=== PATIENT | male | born 1965 | race Caucasian/White ===

== ENCOUNTER 2023-11-01 12:11 | Outpatient (CLI) | payer MEDICAID, SELFPAY | END 2023-11-01 12:12 | disposition home or self-care (01) | PROVIDERS: PCP Family Medicine; Visit Provider Family Medicine | DX: I83.018 Varicose veins of right lower extremity with ulcer other part of lower leg (principal); L97.812 Non-pressure chronic ulcer of other part of right lower leg with fat layer exposed; I83.028 Varicose veins of left lower extremity with ulcer other part of lower leg; L97.822 Non-pressure chronic ulcer of other part of left lower leg with fat layer exposed; E11.40 Type 2 diabetes mellitus with diabetic neuropathy, unspecified; I89.0 Lymphedema, not elsewhere classified; Z89.511 Acquired absence of right leg below knee; I25.10 Atherosclerotic heart disease of native coronary artery without angina pectoris; E66.01 Morbid (severe) obesity due to excess calories; Z68.43 Body mass index [BMI] 50.0-59.9, adult; F43.24 Adjustment disorder with disturbance of conduct; Z79.4 Long term (current) use of insulin | CPT/HCPCS: 11042; 11045; G0463 ==

== ENCOUNTER 2023-11-08 07:51 | Outpatient (CLI) | payer MEDICAID, SELFPAY | END 2023-11-08 07:52 | disposition home or self-care (01) | LOC: WOUND 07:51 | PROVIDERS: PCP Family Medicine; Visit Provider Nurse Practitioner Family | DX: I89.0 Lymphedema, not elsewhere classified (principal); L97.818 Non-pressure chronic ulcer of other part of right lower leg with other specified severity; E11.40 Type 2 diabetes mellitus with diabetic neuropathy, unspecified; Z89.511 Acquired absence of right leg below knee; Z79.4 Long term (current) use of insulin | CPT/HCPCS: 97597; 97598; G0463 ==

== ENCOUNTER 2023-11-22 10:11 | Outpatient (CLI) | payer MEDICARE, SELFPAY | END 2023-11-22 10:12 | disposition home or self-care (01) | LOC: WOUND 10:11 | PROVIDERS: PCP Family Medicine; Visit Provider Nurse Practitioner Family | DX: I83.012 Varicose veins of right lower extremity with ulcer of calf (principal); I89.0 Lymphedema, not elsewhere classified; E11.40 Type 2 diabetes mellitus with diabetic neuropathy, unspecified; I73.9 Peripheral vascular disease, unspecified; L97.218 Non-pressure chronic ulcer of right calf with other specified severity; Z89.511 Acquired absence of right leg below knee; Z79.4 Long term (current) use of insulin | CPT/HCPCS: 87070; 87186; 97597; 97598 ==

== ENCOUNTER 2023-12-06 12:49 | Outpatient (CLI) | payer MEDICARE, SELFPAY | END 2023-12-06 12:50 | disposition home or self-care (01) | LOC: WOUND 12:49 | PROVIDERS: PCP Family Medicine; Visit Provider Nurse Practitioner Family | DX: I89.0 Lymphedema, not elsewhere classified (principal); L97.212 Non-pressure chronic ulcer of right calf with fat layer exposed; L89.151 Pressure ulcer of sacral region, stage 1; E11.40 Type 2 diabetes mellitus with diabetic neuropathy, unspecified; Z79.4 Long term (current) use of insulin; Z89.511 Acquired absence of right leg below knee | CPT/HCPCS: 97602; G0463 ==

== ENCOUNTER 2023-12-25 14:27 | Outpatient (CLI) | payer MEDICARE, SELFPAY | END 2023-12-25 14:28 | disposition home or self-care (01) | LOC: WOUND 14:27 | PROVIDERS: PCP Family Medicine; Visit Provider Nurse Practitioner Family | DX: I83.012 Varicose veins of right lower extremity with ulcer of calf (principal); L97.212 Non-pressure chronic ulcer of right calf with fat layer exposed; L89.151 Pressure ulcer of sacral region, stage 1; E11.40 Type 2 diabetes mellitus with diabetic neuropathy, unspecified; I89.0 Lymphedema, not elsewhere classified; Z89.511 Acquired absence of right leg below knee; Z79.4 Long term (current) use of insulin | CPT/HCPCS: G0463 ==

== ENCOUNTER 2024-01-17 09:51 | Outpatient (CLI) | payer MEDICARE, SELFPAY | END 2024-01-17 09:52 | disposition home or self-care (01) | LOC: WOUND 09:51 | PROVIDERS: PCP Family Medicine; Visit Provider Nurse Practitioner Family | DX: L89.151 Pressure ulcer of sacral region, stage 1 (principal); I89.0 Lymphedema, not elsewhere classified; E11.40 Type 2 diabetes mellitus with diabetic neuropathy, unspecified; I83.022 Varicose veins of left lower extremity with ulcer of calf; L97.228 Non-pressure chronic ulcer of left calf with other specified severity; I83.012 Varicose veins of right lower extremity with ulcer of calf; L97.212 Non-pressure chronic ulcer of right calf with fat layer exposed; Z89.511 Acquired absence of right leg below knee; Z79.4 Long term (current) use of insulin; Z79.84 Long term (current) use of oral hypoglycemic drugs | CPT/HCPCS: 97602; G0463 ==

== ENCOUNTER 2024-01-31 10:22 | Outpatient (CLI) | payer MEDICARE, SELFPAY | END 2024-01-31 10:23 | disposition home or self-care (01) | LOC: WOUND 10:22 | PROVIDERS: PCP Family Medicine; Visit Provider Nurse Practitioner Family | DX: I89.0 Lymphedema, not elsewhere classified (principal); I73.9 Peripheral vascular disease, unspecified; Z89.511 Acquired absence of right leg below knee | CPT/HCPCS: 97602 ==

== ENCOUNTER 2024-02-28 09:51 | Outpatient (CLI) | payer MEDICARE, SELFPAY | END 2024-02-28 09:52 | disposition home or self-care (01) | LOC: WOUND 09:51 | PROVIDERS: PCP Family Medicine; Visit Provider Nurse Practitioner Family | DX: I89.0 Lymphedema, not elsewhere classified (principal); E11.40 Type 2 diabetes mellitus with diabetic neuropathy, unspecified; I69.351 Hemiplegia and hemiparesis following cerebral infarction affecting right dominant side; I73.9 Peripheral vascular disease, unspecified; Z89.511 Acquired absence of right leg below knee; E66.01 Morbid (severe) obesity due to excess calories; Z68.42 Body mass index [BMI] 45.0-49.9, adult; Z79.4 Long term (current) use of insulin | CPT/HCPCS: G0463 ==